=== PATIENT | female | born 1985 | race Caucasian/White ===

== ENCOUNTER 2019-02-07 08:23 | Inpatient (IN) | payer OTHER ==
[~2019-02-07] VITALS: Ht 160 cm; Wt 53.0 kg
[~2019-02-07 08:23] MED LIST: NONE PER PT
[2019-02-07] MEDS ORDERED: hydrALAzine 20 MG/ML, 1ML IV PRN (09:00)
[2019-02-07] MEDS ORDERED: MEPERIDINE/PF 25MG/0.5ML IVPush PRN (09:00)
[2019-02-07] MEDS ORDERED: LABETALOL 5MG/ML, 20ML IV PRN (09:00)
[2019-02-07] MEDS ORDERED: METOCLOPRAMIDE 5 MG/ML, 2ML IV PRN (09:00)
[2019-02-07] MEDS ORDERED: OXYcodone 5 MG/5 ML ORAL.SOL UDC PO PRN (09:00)
[2019-02-07] MEDS ORDERED: FENTANYL PF 100 MCG/2ML IV PRN (09:00)
[2019-02-07] MEDS ORDERED: LORazepam 2 MG/ML, 1ML IVPush PRN (09:00)
[2019-02-07] MEDS ORDERED: LACTATED RINGERS 1,000 ML IV SCH (09:13)
[2019-02-07] MEDS ORDERED: MIDAZOLAM 1 MG/ML, 2ML ONE (09:23)
[2019-02-07] MEDS ORDERED: FENTANYL PF 250 MCG/5ML ONE (09:23)
[2019-02-07 09:27] LABS: HCG UR SG 1.021 (1.003-1.030)
[2019-02-07] MEDS ORDERED: LIDOCAINE-MPF 1%, 2ML INFIL ONE (09:30)
[2019-02-07] MEDS ORDERED: THROMBIN 20,000 UNIT VIAL TP ONE (10:17)
[2019-02-07] MEDS ORDERED: EPINEPHRINE 1 MG/ML, 1ML ONE (10:17)
[2019-02-07] MEDS ORDERED: CHLORHEXIDINE 15 ML UDC ONE (10:17)
[2019-02-07] MEDS ORDERED: OXYMETAZOLINE NASAL SPRAY 0.05%, 15ML ONE (10:17)
[2019-02-07] MEDS ORDERED: LIDOCAINE 1%, 20ML ONE (10:17)
[2019-02-07] MEDS ORDERED: NEOSPORIN OINT, 15GM ONE (10:17)
[2019-02-07] MEDS ORDERED: CEFAZOLIN 1,000 MG ONE (10:56)
[2019-02-07] MEDS ORDERED: PROPOFOL 10 MG/ML, 20ML ONE (10:56)
[2019-02-07] MEDS ORDERED: ESMOLOL 100 MG/10 ML ONE (10:56)
[2019-02-07] MEDS ORDERED: DEXAMETHASONE 4 MG/ML, 1ML ONE (10:56)
[2019-02-07] MEDS ORDERED: NEOSTIGMINE 1 MG/ML, 10ML ONE (10:56)
[2019-02-07] MEDS ORDERED: ROCURONIUM 10 MG/ML,10ML ONE (10:56)
[2019-02-07] MEDS ORDERED: GLYCOPYRROLATE 0.2MG/1ML, 5ML ONE (10:56)
[2019-02-07] MEDS ORDERED: ONDANSETRON 2MG/ML, 2ML ONE (10:56)
[2019-02-07] MEDS ORDERED: HYDROmorphone 2 MG/ML, 1ML ONE (14:12)
[2019-02-07] MEDS ORDERED: FENTANYL PF 100 MCG/2ML ONE (14:12)
[2019-02-07] MEDS: HYDROmorphone 2 MG/ML, 1ML IVPush PRN ×2 (14:21→14:33)
[2019-02-07 15:35] VITALS: BP 128/77
[2019-02-07] MEDS ORDERED: ONDANSETRON 2MG/ML, 2ML IVPush PRN (17:00)
[2019-02-07] MEDS: HYDROmorphone 2 MG/ML, 1ML IV PRN ×2 (18:31→22:10)
[2019-02-07] MEDS: POTASSIUM CHLORIDE 40 MEQ in D5%-0.45% NACL 1,000 ML IV SCH (19:04)
[2019-02-07] MEDS: CEFAZOLIN PMX 1GM/50ML 50 ML IV SCH (19:04)
[2019-02-07] MEDS: DEXAMETHASONE 10 MG in SODIUM CHLORIDE 0.9% 50 ML IV SCH (19:43)
[2019-02-07] MEDS: IBUPROFEN 100 MG/5 ML UDC PO SCH (20:18)
[2019-02-07 20:59] VITALS: BP 111/77
[2019-02-07] MEDS ORDERED: IBUPROFEN 800 MG TABLET PO SCH (21:00)
[2019-02-08 00:56] VITALS: BP 102/65
[2019-02-08 03:04] VITALS: BP 104/60
[2019-02-08] MEDS: HYDROmorphone 2 MG/ML, 1ML IV PRN ×2 (03:17→06:24)
[2019-02-08] MEDS: CEFAZOLIN PMX 1GM/50ML 50 ML IV SCH ×2 (03:18→12:03)
[2019-02-08] MEDS: DEXAMETHASONE 10 MG in SODIUM CHLORIDE 0.9% 50 ML IV SCH ×2 (04:40→12:50)
[2019-02-08 04:56] VITALS: BP 104/65
[2019-02-08] MEDS: IBUPROFEN 100 MG/5 ML UDC PO SCH ×3 (05:40→16:26)
[2019-02-08] MEDS: POTASSIUM CHLORIDE 40 MEQ in D5%-0.45% NACL 1,000 ML IV SCH ×2 (05:43→16:25)
[2019-02-08] MEDS ORDERED: MOTRIN PO (08:45)
[2019-02-08] MEDS ORDERED: OCEAN NASAL SPRAY NS (08:47)
[2019-02-08] MEDS ORDERED: SUDAFED PO (08:49)
[2019-02-08] MEDS ORDERED: HYCET PO (08:54)
[2019-02-08] MEDS ORDERED: CHLO15MO PO (08:56)
[2019-02-08] MEDS ORDERED: AMOX-291 PO (08:58)
[2019-02-08 09:03] VITALS: BP 103/72
[2019-02-08] MEDS: HYDROcodone/APAP 7.5-325MG/15ML UDC PO PRN ×2 (09:31→16:25)
[2019-02-08 13:36] VITALS: BP 111/77
[2019-02-08 16:26] VITALS: BP 105/76
== END 2019-02-08 17:59 | disposition home or self-care (01) | DRG 132 ==
LOC: ORIP 08:55 → 4NOR 15:30
PROVIDERS: ADMIT Dentist; ATTEND Dentist
PROC: 0NSR04Z Reposition Maxilla with Internal Fixation Device, Open Approach (ICD-10-PCS; principal; 2019-02-07 10:30)
DX: M26.19 Other specified anomalies of jaw-cranial base relationship (principal); M26.01 Maxillary hyperplasia
CPT/HCPCS: J3490 ×3; 81025; C1713; G0378; J0171; J0690; J1100; J1170; J2250; J2405; J2704; J2710; J3010; J3480; J7120